=== PATIENT | male | born 1995 | race Two or more races ===

== ENCOUNTER 2018-08-29 15:33 | Emergency (ER) | payer BC ==
[~2018-08-29] VITALS: Ht 172.7 cm; Wt 100.8 kg
[2018-08-29] MEDS ORDERED: mag hydrox/Alum hydrox/simeth 30ml oral suspension PO ONE (15:50)
[2018-08-29] MEDS ORDERED: LIDOcaine Viscous 15ml cup PO ONE (15:50)
[2018-08-29] MEDS ORDERED: sucralfate 1 gm tablet PO ONE (15:50)
[2018-08-29] MEDS ORDERED: PANT-47 PO (16:31)
[2018-08-29 16:44] VITALS: BP 124/74
== END 2018-08-29 16:45 | disposition home or self-care (01) ==
LOC: ER 15:33
DX: R10.13 Epigastric pain (principal); K21.9 Gastro-esophageal reflux disease without esophagitis; Z79.899 Other long term (current) drug therapy
CPT/HCPCS: 93005; 99283